=== PATIENT | male | born 1935 | race Caucasian/White ===

== ENCOUNTER 2016-10-03 15:32 | Emergency (ER) | payer OTHER ==
--- NOTE | ~2016-10-03 | CR72 ---
[facility] A Service of [facility] & [facility] RADIOLOGY TEXT RESULTS PATIENT: BARBARA LONDONO JR LOCATION: SED : 39 UNIT #: [id number] AGE: [address]: Oscar Lucia MD SEX: M ORDER DR: [id number] [place] [id number] E MR#: [id number] Acc #: [id number] NAME: BARBARA LONDONO JR : 1935 SEX: M STUDY DATE/TIME: 10/03/2016 18:06 UNIT: SED ROOM: STUDY DESCRIPTION: CR Chest Single View Portable Attending Physician: Oscar Lucia M.D. Ordering Physician: Oscar Lucia M.D. Primary Care Physician: Floridalma Ayon A.P.R.N. MEDICAL IMAGING REPORT This report is preliminary unless electronic signature is present. EXAM Portable chest HISTORY History of right-sided lung cancer diagnosed 1 week ago, weakness, cough, congestion. COMPARISON 07/28/2015 FINDINGS Portable view of the chest demonstrates surgical clips in the right perihilar region. There is a small amount of right infrahilar volume loss and atelectasis. Deformity noted in the right posterior sixth rib and seventh rib suggest prior thoracotomy. Left lung is clear. Heart and mediastinum unremarkable. No effusions or pneumothorax. Dictated by... Cheyenne Pascual M.D. THIS IS AN ELECTRONICALLY VERIFIED REPORT Cheyenne Pascual M.D. at 10/04/2016 2:48 PM CATHY/ras TD: 10/04/2016 00:52 JOB #: [id number] MEDICAL IMAGING REPORT Page 1 of 1
[~2016-10-03 15:32] MED LIST: ASPIRIN PO; AUGMENTIN PO; AUGMENTIN875 M1 PO; CRESTOR PO; FLONASE 0.05% N16 G1; KEFLEX PO; LISINOPRIL PO; LISINOPRIL-HCTZ1 T15 PO; NIACIN500 M2 PO; ULTRAM PO; VITAMIN B-12500 MCG PO; VITAMIN C PO; VITAMIN D 4001 UDTAB PO; VITAMIN D35000 UNI1 PO; VITAMIN D400 UNI2; VITEYES PO; [UNRECOGNIZED DRUG - OTHER]
== END 2016-10-03 19:08 | disposition home or self-care (01) ==
LOC: SED 15:32
DX: J20.9 Acute bronchitis, unspecified (principal); Z79.899 Other long term (current) drug therapy; Z88.8 Allergy status to other drugs, medicaments and biological substances; Z91.041 Radiographic dye allergy status
CPT/HCPCS: 71010; 99283